=== PATIENT | male | born 1990 | race Two or more races ===

== ENCOUNTER → 2022-01-01 | Emergency (ER) | payer OTHER ==
[~2022-01-01] VITALS: Ht 165.1 cm; Wt 71.0 kg
[2022-01-01 02:01] VITALS: BP 143/75
== END | disposition left against medical advice (07) ==
LOC: ER 01:52
DX: S51.812A Laceration without foreign body of left forearm, initial encounter (principal); Z53.21 Procedure and treatment not carried out due to patient leaving prior to being seen by health care provider; W25.XXXA Contact with sharp glass, initial encounter; Y93.89 Activity, other specified; Y92.9 Unspecified place or not applicable; Y99.9 Unspecified external cause status